=== PATIENT | male | born 1965 | race Asian ===

== ENCOUNTER 2024-02-06 19:37 | Emergency (ER) | payer OTHER, SELFPAY ==
[2024-02-06 19:48] VITALS: BP 148/82; BMI 22.1
[2024-02-06 22:32] LABS: Glucose - Point of Care 66 mg/dl (70-99)
--- NOTE | 2024-02-06 22:40 | ED.GENMED ---
History of Present Illness
General
Chief Complaint: Skin Problem
Source: patient and family
Exam Limitations: none
Time Seen by Provider: 02/06/24 21:45
Nursing documentation reviewed up to this point in time: agreed with
History of Present Illness
History of Present Illness:
Pleasant 58-year-old male who presents with left foot diabetic foot ulcer. He is followed by [facility]. Today family noticed some oozing so they contacted his doctor who advised him to come to the emergency department. He is
afebrile. He is insulin-dependent diabetic. 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 Patient denies chest pain or shortness of breath. He has a history of DVT is. He has had colon cancer.
Vital signs are stable. Patient not hypoxic
Nursing note reviewed. I agree with nursing documentation up to this point in time.
Home Meds and allergies reviewed.
NUMBER AND COMPLEXITY OF PROBLEMS ADDRESSED AT THE ENCOUNTER
� Chronic conditions affecting care: Insulin-dependent diabetic, chronic diabetic foot ulcer, osteomyelitis of the left calcaneus
� Acute Exacerbation and/or Progression of Chronic Illness: Diabetic foot ulcer
� Differential Diagnosis includes: Osteomyelitis, DFU, sepsis
AMOUNT AND/OR COMPLEXITY OF DATA TO BE REVIEWED AND ANALYZED
I performed an independent evaluation of the following and my interpretation is:
EKG:
CT:
X-rays:
Ultrasound:
Laboratory Studies:
Other:
Review of other/old records: Review of an MRI on 07/22/2023 showed early osteomyelitis involving the posterior/plantar lateral calcaneus.
Clinical information was obtained by an independent historian:
Prescriptions/Medications Considered but not given:
Further testing considered but not performed:
RISK OF COMPLICATIONS AND/OR MORBIDITY OR MORTALITY OF PATIENT MANAGEMENT
Social determinants of health affecting care: Good Social Support family is present at the bedside
Discussion with other providers:
Escalation of care including admission/observation vs risk of discharge considered:
CRITICAL CARE NOTE:
Total Time (exclusive of procedures):
Update:
Past History
Past History
ED Past Medical History: Cancer (Colon CA), Hypercholesterolemia, IDDM, Psychiatric (Anxiety) and Other (DVT LLE, Migraines, PVD, )
ED Past Surgical History: Bowel resection (With colostomy) and Orthopedic (right foot toes amputation, )
Social History
Tobacco: Former smoker
Alcohol: None
Drug: None
Personal:
Living: with family
Review of Systems
Review of Systems
Allergies reviewed?: Yes
Other source history: family
All Other Systems: ROS reviewed and negative except as documented in HPI and ROS
Constitutional: Denies fever, fatigue or chills
EENT: Reports no symptoms
Respiratory: Reports no symptoms
Cardiac: Reports no symptoms
ABD/GI: Reports no symptoms
: Reports no symptoms
Musculoskeletal: Reports no symptoms
Skin: Reports no symptoms
Neurological: Reports no symptoms
Endocrine: Reports no symptoms
Hematologic/Lymphatic: Reports no symptoms
Psychiatric: Reports anxiety
Phy Exam
General Physical Exam
General Presentation: well appearing and mild distress
General Skin: warm and dry
General Habitus: normal
General Mental: alert
General Hydration: appears well hydrated
ENT Exam
ENT Exam: EOMI, pharynx normal, neck supple and normocephalic
Eye Exam
Eye Exam: PERRL, cornea clear and conjunctiva normal
Cardiovascular Exam
Cardiovascular Exam: regular rate/rhythm, no edema, no murmur and normal peripheral pulses
Pulmonary Exam
Pulmonary Exam: lungs clear, no respiratory distress, no rales, no crackles, no rhonchi, no stridor, no wheezing and no cough
Gastrointestinal Exam
Gastrointestinal Exam: normal bowel sounds, non tender, soft, no organomegaly, no pulsatile mass and non distended
Neurological Exam
Neurological Exam: alert, oriented x3, no motor deficits and speech normal
Musculoskeletal Exam
Musculoskeletal Exam: neuro vasc intact and other (Right-sided partial foot amputation. Left calcaneal diabetic foot ulcer.)
Skin Exam
Skin Exam: normal color, warm/dry, no rash, no petechia and other (Small rash at the heel of his left foot, draining)
Psychiatric Exam
Psychiatric Exam: normal mood/affect
Course
Orders/Labs/Results
Orders:
Orders
02/06/24 22:37
Foot, Left 3 View [CR Foot - Left Min 3 Views] Urgent
Comment:
Reason For Exam: calcaneal DFU, now seems infected
02/06/24 22:50
CRP [C-Reactive Protein] Urgent
Complete Blood Count/With Diff Urgent
Comprehensive Metabolic Panel Urgent
Lactic Acid Q4H
Comment: CANCEL 2nd LACTIC ACID IF 1st LACTIC ACID IS LESS THAN 2
Procalcitonin Urgent
PCT Algorithmm Indication: Sepsis
Sed Rate [Erythrocyte Sed Rate] Urgent
Blood Culture Urgent
CARSON Source: Blood/Venous
Specimen Description:
02/06/24 23:54
Wound Culture [Wound/Abscess/Other Culture] Urgent
CARSON Source: Foot
Specimen Description: Left
Date Specimen was Collected: 02/07/24
Time Specimen was Collected: 00:08
02/06/24 23:55
Vancomycin [Vancocin] 2,000 mg 0.9% Sodium Chloride 500 ml [Nss] 500 ml IV NOW
Abnormal Lab Results
02/06/24 02/06/24 02/06/24
22:30 22:50 23:10
WBC 3.6 L 10^3/uL
(4.8-10.8)
MCV 78.2 L fL
(80.0-94.0)
MCH 25.3 L pg
(27.0-31.0)
MCHC 32.3 L g/dL
(33.0-37.0)
RDW 15.3 H %
(11.5-14.5)
Absolute Neuts (auto) 1.2 L 10^3/uL
(1.4-6.5)
Immature Gran % 0.6 H %
(0-0.5)
Neutrophils % 34.1 L %
(42.2-75.2)
Monocytes % 12.1 H %
(1.7-9.3)
Creatinine 1.6 H mg/dL
(0.7-1.3)
POC Glucose 66 L mg/dl 110 H mg/dl
(70-99) (70-99)
02/06/24 22:50
02/06/24 22:50
Vital Signs
Initial and Last Documented VS:
Initial Vital Signs
Temp Pulse Resp BP Pulse Ox
97.7 F 73 16 148/82 99
02/06/24 19:48 02/06/24 19:48 02/06/24 19:48 02/06/24 19:48 02/06/24 19:48
Last Documented Vital Signs
Temp Pulse Resp BP Pulse Ox
97.5 F 69 13 158/85 98
02/06/24 22:35 02/06/24 23:09 02/06/24 23:09 02/06/24 23:11 02/06/24 23:09
*Radiology
Radiology exam reviewed: preliminary read by ED provider (probably osteo)
*Pulse Oximetry
Patient hypoxic: no
*Critical Care Note
Total Time (30-74mins, 75-104mins- exclusive of procedures): Not Applicable
ED Attending Note
-
Portions of this chart may have been created with voice recognition software.� Occasional wrong word or��sound alike� substitutions may have occurred due to the inherent limitations of voice recognition software.
Discharge Plan
Departure
Patient Disposition: Home (Routine Discharge)
Date of Disposition: 02/06/24
Time of Disposition: 23:55
Admit to: Telemetry
Patient with high blood pressure during this ER visit?: Yes
Condition: Good
Discharge Problem:
Hypoglycemia, Pressure ulcer of left heel, stage 3
Instructions: Wound Care (DC), Keeping track of your blood sugar
Prescriptions:
No Action
omeprazole 40 MG capsule,delayed release(DR/EC)
40 mg PO DAILY
finasteride 5 MG tablet
5 mg PO DAILY
tamsulosin 0.4 MG capsule
0.4 mg PO DAILY
acetaminophen 650 mg Tablet Extended Release
650 mg PO TIDPRN PRN (Reason: mild pain)
ascorbic acid (vitamin C) [Vitamin C] 500 mg Tablet
500 mg PO DAILY
insulin lispro 100 unit/mL Insulin Pen
0 sliding scale dose SC DIRECTED
Patient Comments:
07/22/2023, patient states that he adjusts the units based on his blood sugar.
insulin glargine [Lantus Solostar U-100 Insulin] 100 unit/mL (3 mL) Insulin Pen
27 unit SC HS
Insulin Glargine Lantus [Lantus] 27 UNITS
Subcutaneous Insulin Syringe [Syringe-Insulin] 0 UNIT
As Directed mls/hr SC HS
Ordered By: Leonard Kaminski MD
Last Taken: Unknown
levofloxacin 750 mg tablet
750 mg PO DAILY Qty: 30 0RF
Referrals:
Osvaldo Kaminski CRNP [Family Provider] -
Activity Restrictions/Additional Instructions:
Please keep your follow up appointment with podiatry at your previously scheduled appointment this week.
No further antibiotics are needed at this time.
It was a pleasure meeting you and taking part in your care. We hope for your continued healing and wellness.
Please read discharge instructions in their entirety. However, they are for general education and may not describe your exact diagnosis at discharge. Information on your ER visit and medical conditions were discussed with you along with appropriate
follow up information...
If indicated, please take your medications as instructed and indicated on discharge paperwork.
Please schedule a follow up appointment as directed. Call to schedule an appointment
Please return to the emergency department with ANY change in, persisting, or worsening of symptoms. If any of your symptoms do not improve, or persist, or become more severe within 6-12 hours, please return to the emergency department for further
care.
Please return to the emergency department if you develop a headache, neck pain/stiffness, fever greater than 100.4F, chest pain, shortness of breath, persistent nausea, vomiting, slurred speech, difficulty walking, numbness/tingling, weakness, signs
of infection or any other symptoms that are worrisome to you.
If you have any questions or concerns please do not hesitate to call the Hospital at or E-mail me directly at [email or web address]
Interventions
Interventions:
*Risk Screen - Suicide Last Done: 02/06/24 19:48
*General Assessment Last Done: 02/06/24 22:33
*Neglect/Abuse Screening Last Done: 02/06/24 19:48
*ED COVID-19 Vaccine History Last Done: 02/06/24 22:33
ED-Skin Assessment Last Done: 02/06/24 22:56
Discharge Date and Time
Print Language: TUVALUAN
[2024-02-06 22:59] LABS: % Basophils 1.4 % (0-2); % Eosinophils 5.9 % (0-6); % Immature Granulocytes 0.6 % (0-0.5); % Lymphocytes 45.9 % (20.5-51.1); % Monocytes 12.1 % (1.7-9.3); % Neutrophils 34.1 % (42.2-75.2); Absolute Basophils 0.1 10^3/uL (0-0.2); Absolute Eosinophils 0.2 10^3/uL (0-0.7); Absolute Lymphocytes 1.6 10^3/uL (1.2-3.4); Absolute Monocytes 0.4 10^3/uL (0.1-0.6); Absolute Neutrophils 1.2 10^3/uL (1.4-6.5); Hematocrit 43.3 % (39.0-52.0); Mean Corp Hgb Conc. 32.3 g/dL (33.0-37.0); Mean Corpuscular Hgb 25.3 pg (27.0-31.0); Mean Corpuscular Volume 78.2 fL (80.0-94.0); Mean Platelet Volume 10.1 fL (7.4-10.4); Nucleated Red Blood Cells % 0 % (-); Platelet Count 162 10^3/uL (130-400); Red Blood Cell Count 5.54 10^6/uL (4.70-6.10); Red Cell Dist. Width 15.3 % (11.5-14.5); White Blood Cell Count 3.6 10^3/uL (4.8-10.8)
[2024-02-06 23:07] VITALS: BMI 21.9
[2024-02-06 23:08] VITALS: BP 158/85
[2024-02-06 23:11] VITALS: BP 158/85
[2024-02-06 23:11] LABS: Glucose - Point of Care 110 mg/dl (70-99)
[2024-02-06 23:25] LABS: ALT (SGPT) 25 U/L (0-50); AST (SGOT) 44 U/L (17-59); Alkaline Phosphatase 84 U/L (38-126); Blood Urea Nitrogen 20 mg/dl (9-20); Calcium 9.8 mg/dl (8.4-10.2); Carbon Dioxide 26 mmol/L (22-30); Chloride 101 mmol/L (98-107); Estimated Creatinine Clearance 53 ml/min; Glucose 74 mg/dl (70-99); Potassium 4.5 mmol/L (3.5-5.1); Sodium 137 mmol/L (135-145); Total Bilirubin 0.6 mg/dl (0.2-1.3); eGFR 50.26
[2024-02-06 23:29] LABS: C-Reactive Protein < 5.00 mg/L (0.0-10.00); Erythrocyte Sed Rate 13 mm/hour (0-20)
[2024-02-06 23:36] LABS: Procalcitonin < 0.05 ng/ml (0.0-0.25)
[2024-02-07 00:09] VITALS: BP 155/85
[2024-02-07] MEDS: VANCOCIN 540 MG IV (00:16)
[2024-02-07 01:00] VITALS: BP 158/88
[2024-02-07 02:00] VITALS: BP 169/98
== END 2024-02-07 03:03 | disposition home or self-care (01) ==
LOC: EMR 19:37
PROVIDERS: EMERGENCY PHYSICIAN Student in an Organized Health Care Education/Training Program; FAMILY PHYSICIAN Nurse Practitioner
DX: L89.623 Pressure ulcer of left heel, stage 3 (principal); E11.649 Type 2 diabetes mellitus with hypoglycemia without coma; E11.621 Type 2 diabetes mellitus with foot ulcer; Z87.891 Personal history of nicotine dependence
CPT/HCPCS: 99284; 96365; 96366; 73630; 80053; 82962; 83605; 84145; 85025; 85652; 86140; 87040; 87070; 87147; 87205

== ENCOUNTER 2025-03-31 12:11 | Emergency (ER) | payer OTHER, SELFPAY ==
[2025-03-31 12:19] VITALS: BP 153/95
--- NOTE | 2025-03-31 12:46 | ED.GENMED ---
History of Present Illness
General
Chief Complaint: Abdominal Pain
Source: patient
Exam Limitations: none
Time Seen by Provider: 03/31/25 12:39
History of Present Illness
History of Present Illness:
See MDM
Past History
Past History
ED Past Medical History: Cancer (Colon CA), Hypercholesterolemia, IDDM, Psychiatric (Anxiety) and Other (DVT LLE, Migraines, PVD, )
ED Past Surgical History: Bowel resection (With colostomy) and Orthopedic (right foot toes amputation, )
Social History
Tobacco: Former smoker
Alcohol: None
Drug: None
Personal:
Living: with family
Phy Exam
Physical Exam
Physical Exam:
See MDM
Course
Orders/Labs/Results
Orders:
Orders
03/31/25 12:44
Electrocardiogram (*1) Urgent
Reason for Study: Abdominal Pain
EKG- Treatment ONCE
0.9% Sodium Chloride 1000 ml [Nss] 1,000 ml IV BOLUS
Morphine Sulfate 4 mg IV NOW STA
Ondansetron Injectable [Zofran] 4 mg IV NOW STA
03/31/25 12:45
US Periph Venous LOWER Ext RT Urgent
Comment:
Reason For Exam: R inner thigh pain
03/31/25 13:02
Complete Blood Count/With Diff Urgent
Troponin I Urgent
03/31/25 13:40
Basic Metabolic Panel Urgent
Lipase Urgent
03/31/25 15:21
Potassium Urgent
Abnormal Lab Results
03/31/25 03/31/25
13:02 13:40
RBC 6.54 H 10^6/uL
(4.70-6.10)
MCV 79.5 L fL
(80.0-94.0)
MCH 25.7 L pg
(27.0-31.0)
MCHC 32.3 L g/dL
(33.0-37.0)
RDW 15.3 H %
(11.5-14.5)
Absolute Lymphs (auto) 0.8 L 10^3/uL
(1.2-3.4)
Neutrophils % 75.8 H %
(42.2-75.2)
Lymphocytes % 14.8 L %
(20.5-51.1)
Glucose 139 H mg/dl
(70-99)
03/31/25 13:02
Vital Signs
Initial and Last Documented VS:
Initial Vital Signs
Temp Pulse Resp BP Pulse Ox
98.7 F 80 18 153/95 99
03/31/25 12:19 03/31/25 12:19 03/31/25 12:19 03/31/25 12:19 03/31/25 12:19
Last Documented Vital Signs
Temp Pulse Resp BP Pulse Ox
98.7 F 67 9 172/95 99
03/31/25 12:19 03/31/25 14:30 03/31/25 14:30 03/31/25 14:00 03/31/25 12:49
MDM/Problems Addressed
Differential Diagnosis Includes:
Note:
CHIEF COMPLAINT(S)
Nausea, anorexia, pain, and dizziness.
HISTORY OF PRESENT ILLNESS
The patient is a 59-year-old male with a history of bowel resection due to cancer, resulting in a colostomy approximately 7-8 years ago. He presents with three days of nausea without vomiting, reporting significant anorexia and consequent medication
non-compliance. The patient describes the pain to right thigh as severe, rated as 8 to 10 out of 10. He also reports dizziness, which could be associated with dehydration due to the lack of oral intake and potentially uncontrolled blood pressure.
The patient has not been eating, contributing to general malaise and exacerbating underlying hypertension and diabetes.
PAST MEDICAL AND SURIGICAL HISTORY
Bowel resection due to cancer, leading to the placement of a colostomy bag 7-8 years ago.
CHRONIC MEDICAL CONDITIONS SIGNIFICANTLY AFFECTING CARE
Hypertension and diabetes mellitus.
PHYSICAL EXAM
General: Awake and frail
Skin: Warm, dry.
Head: Normocephalic, atraumatic
Neck: Appears supple, trachea midline.
Eyes, Ears, Nose, Mouth, and Throat: Dry mucous membranes
Cardiovascular: No signs of cyanosis
Respiratory: Respirations are non-labored.
Abdomen: Non-distended. Soft and nontender. Colostomy site without surrounding cellulitic changes
Musculoskeletal: No deformities. Mild tenderness to right medial thigh
Neurological: No focal neurological deficit observed.
Psychiatric: Cooperative, appropriate mood and affect.
PROBLEM LIST
Acute:
- Nausea
- Anorexia
- Severe localized pain near the colostomy site
- Dizziness
Chronic:
- Hypertension
- Diabetes mellitus
PLAN
- Perform an ultrasound to assess for potential blood clots, particularly due to pain severity and the nature of the previous surgical intervention.
- Administer pain medication after further assessment.
- Evaluate blood pressure management urgently, given the reported hypotension.
- Check blood glucose levels to ensure diabetic control in the context of not taking medication due to anorexia.
DIFFERENTIAL DIAGNOSIS
The Differential Diagnosis includes, in no particular order and is not limited to:
- Dehydration
- Bowel obstruction
- Electrolyte imbalance
- Hypoglycemia
- Ischemic bowel
- Severe constipation
- Colostomy-related complications
- Malnutrition
- Infection (e.g., colonic or systemic)
- Gastroesophageal reflux disease or peptic ulcer disease
SUMMARY OF ENCOUNTER
The patient, a 59-year-old male, presented to the emergency department with nausea, dizziness, and severe pain near the colostomy site. On evaluation, the patient was found to have acute on chronic deep vein thrombosis (DVT) confirmed by ultrasound.
Management included restarting anticoagulation therapy with apixaban (Eliquis) and treating nausea with ondansetron (Zofran). After reassessment and resolution of nausea, the patient felt well enough to be discharged.
DISPOSITION
Discharge.
ASSESSMENT
Acute on chronic DVT confirmed by ultrasound. The patient had initial symptoms of nausea and dizziness, which were managed effectively in the emergency setting.
EMERGENCY TREATMENTS ADMINISTERED
Ondansetron for nausea relief.
REASSESSMENT
On reassessment, the patient reported significant improvement in nausea and was feeling better overall.
PLAN
Restart anticoagulation therapy with apixaban (Eliquis) for the management of DVT. Administer ondansetron (Zofran) for nausea. Provide a prescription for tamsulosin for right thigh discomfort. Discuss outpatient follow-up with his primary care
physician for ongoing management and monitoring.
INDEPENDENT REVIEW OF LABS AND INTERPRETATION OF TESTS
My independent interpretation of the ultrasound revealed the presence of acute on chronic DVT.
PATIENT EDUCATION AND COUNSELING
The patient was educated on the importance of adherence to prescribed medications, recognition of potential signs of DVT, and the necessity of follow-up care with his primary care provider.
FOLLOW-UP INSTRUCTIONS
The patient was instructed to follow up with his primary care provider as the prescriptions are only provided for the first month.
MEDICATION RECONCILIATION
Prescriptions provided for apixaban (Eliquis) for anticoagulation, ondansetron (Zofran) for nausea, and tamsulosin for thigh discomfort.
MEDICAL DECISION MAKING
- Number and Complexity of Problems Addressed: Chronic conditions affecting care including hypertension and diabetes mellitus; Acute on chronic DVT confirmed by ultrasound; Pain near colostomy site; Dizziness; Nausea
- Data:
- Category 1: My independent interpretation of the ultrasound confirmed acute on chronic DVT.
- Risk: Prescription medication was prescribed for the management of DVT (apixaban).
DIAGNOSIS
- Acute on chronic deep vein thrombosis (DVT) (ICD-10: I82.4)
- Nausea improved after treatment (ICD-10: R11.0)
*Pulse Oximetry
SaO2: 99
Oxygen Mode of Delivery: Room air
Patient hypoxic: no
*Critical Care Note
Total Time (30-74mins, 75-104mins- exclusive of procedures): Not Applicable
ED Attending Note
-
Portions of this chart may have been created with voice recognition software.� Occasional wrong word or��sound alike� substitutions may have occurred due to the inherent limitations of voice recognition software.
Discharge Plan
Departure
Discharge Problem:
DVT (deep venous thrombosis), Nausea
Instructions: Deep vein thrombosis (DVT) - ED (DC)
Prescriptions:
New
ondansetron 4 mg Tablet,Disintegrating
4 mg PO BIDPRN PRN (Reason: nausea/vomiting) Qty: 10 0RF
oxycodone 5 mg tablet
5 mg PO Q8H PRN (Reason: Pain) Qty: 14 0RF
Eliquis 5 mg tablet
See Rx Instructions .ROUTE .COMPLEX Qty: 74 0RF
Rx Instructions:
10 mg BID day 1-7, 5 mg BID day 8-30 and afterwards
No Action
omeprazole 40 MG capsule,delayed release(DR/EC)
40 mg PO DAILY
finasteride 5 MG tablet
5 mg PO DAILY
tamsulosin 0.4 MG capsule
0.4 mg PO DAILY
acetaminophen 650 mg Tablet Extended Release
650 mg PO TIDPRN PRN (Reason: mild pain)
ascorbic acid (vitamin C) [Vitamin C] 500 mg Tablet
500 mg PO DAILY
insulin lispro 100 unit/mL Insulin Pen
0 sliding scale dose SC DIRECTED
Patient Comments:
07/22/2023, patient states that he adjusts the units based on his blood sugar.
insulin glargine [Lantus Solostar U-100 Insulin] 100 unit/mL (3 mL) Insulin Pen
27 unit SC HS
Insulin Glargine Lantus [Lantus] 27 UNITS
Subcutaneous Insulin Syringe [Syringe-Insulin] 0 UNIT
As Directed mls/hr SC HS
Ordered By: Leonard Kaminski MD
Last Taken: Unknown
levofloxacin 750 mg tablet
750 mg PO DAILY Qty: 30 0RF
Referrals:
Tory Kaminski CRNP [Family Provider, Family Practice]
Activity Restrictions/Additional Instructions:
Please return for any worsening symptoms.
You may return at any time if you have further concerns.
Please follow up with your doctor at the first available appointment, preferably this week.
I wrote for your first month of blood thinners. Please talk to your doctor about how long to continue the medication.
Thank you for choosing [facility].
Interventions
Interventions:
*Risk Screen - Suicide Last Done: 03/31/25 13:03
*General Assessment Last Done: 03/31/25 13:03
*Neglect/Abuse Screening Last Done: 03/31/25 13:03
*ED- Fall Risk Assessment Last Done: 03/31/25 13:03
*ED COVID-19 Vaccine History Last Done: 03/31/25 13:03
[facility] Assessment Last Done: 03/31/25 13:03
Discharge Date and Time
Print Language: VIETNAMESE
[2025-03-31] MEDS: MORPHINE SULFATE 4 MG IV (12:52)
[2025-03-31] MEDS: NSS 1000 IV (12:53)
[2025-03-31] MEDS: ZOFRAN 4 MG IV (12:53)
[2025-03-31 13:00] VITALS: BP 165/90
[2025-03-31 13:12] LABS: Hematocrit 52.0 % (39.0-52.0); Hemoglobin 16.8 g/dL (13.0-18.0); Mean Corp Hgb Conc. 32.3 g/dL (33.0-37.0); Mean Corpuscular Volume 79.5 fL (80.0-94.0); Nucleated Red Blood Cells % 0 % (-); Platelet Count 190 10^3/uL (130-400); Red Cell Dist. Width 15.3 % (11.5-14.5)
[2025-03-31 13:36] LABS: Troponin I 0.013 ng/ml
[2025-03-31 14:00] VITALS: BP 172/95
[2025-03-31 14:23] LABS: Blood Urea Nitrogen 20 mg/dl (9-20); Calcium 9.5 mg/dl (8.4-10.2); Carbon Dioxide 23 mmol/L (22-30); Chloride 106 mmol/L (98-107); Glucose 139 mg/dl (70-99); Lipase 52 U/L (23-300); Sodium 135 mmol/L (135-145); eGFR > 60.00
[2025-03-31 15:37] LABS: Potassium 4.4 mmol/L (3.5-5.1)
== END 2025-03-31 16:37 | disposition home or self-care (01) ==
LOC: EMR 12:11
PROVIDERS: EMERGENCY PHYSICIAN Student in an Organized Health Care Education/Training Program
DX: I82.411 Acute embolism and thrombosis of right femoral vein (principal); I82.511 Chronic embolism and thrombosis of right femoral vein; E78.00 Pure hypercholesterolemia, unspecified; I10 Essential (primary) hypertension; E11.51 Type 2 diabetes mellitus with diabetic peripheral angiopathy without gangrene; Z79.01 Long term (current) use of anticoagulants; Z85.038 Personal history of other malignant neoplasm of large intestine; Z87.891 Personal history of nicotine dependence; Z90.49 Acquired absence of other specified parts of digestive tract; Z93.3 Colostomy status
CPT/HCPCS: 99284; 96374; 96375; 80048; 83690; 84132; 84484; 85025; 93005; 93971